=== PATIENT | female | born 1970 | race Hispanic/Latino ===

== ENCOUNTER 2017-11-27 08:29 | Day surgery (SDC) | payer MEDICAID ==
[~2017-11-27 08:29] MED LIST: TETRACAINE 0.5% OD PRN; XYLOCAINE 2%/ EPI 1:200,000 INFILTRATI ONE
[2017-11-27] MEDS ORDERED: NACL BACTERIOSTATIC INFILTRATI ONE (10:18)
--- NOTE | 2017-11-27 10:31 | Anesthesia Day of Surgery ---
Anesthesia Day of Surgery - Day of Surgery Patient Examined: Yes Patient H&P Reviewed: Yes Patient is NPO: Yes Beta Blockers: Yes
--- NOTE | 2017-11-27 10:31 | Anesthesia Consultation ---
Anesthesia Consult and Med Hx Date of service: 11/27/17 - Airway Anesthetic Teeth Evaluation: Poor ROM Head & Neck: Adequate Mental/Hyoid Distance: Adequate Mallampati Class: Class II Intubation Access Assessment: Probably Good - Pulmonary Exam CTA: Yes - Cardiac Exam Cardiac Exam: RRR - Pre-Operative Health Status ASA Pre-Surgery Classification: ASA2 Proposed Anesthetic Plan: MAC - Pulmonary Hx Smoking: Yes (1PPD SINCE 13 Y.O.) - Cardiovascular System Hx Hypertension: Yes (OVER 20 YEARS) - Central Nervous System Hx Neuromuscular Disorder: Yes (cerebellar ataxia. ) Hx Psychiatric Problems: Yes (anxiety) - Other Systems Hx Alcohol Use: Yes (SOCIALLY) Hx Substance Use: No Hx Cancer: No - Additional Comments Anesthesia Medical History Comments: Informed consent obtained
[2017-11-27] MEDS: VIGAMOX OD SCH ×3 (10:35→10:45)
[2017-11-27] MEDS: MYDRIACYL OD SCH ×3 (10:35→10:45)
[2017-11-27] MEDS: AK-Dilate OD SCH ×3 (10:35→10:45)
[2017-11-27] MEDS ORDERED: VERSED ONE (11:12)
[2017-11-27] MEDS ORDERED: SUBLIMAZE ONE (11:31)
[2017-11-27] MEDS ORDERED: TOBRADEX ONE (11:56)
[2017-11-27] MEDS ORDERED: TOBRADEX OS ONE (12:07)
[2017-11-27] MEDS ORDERED: PRED FORTE 1% OD SCH ×2 (12:15→14:00)
[2017-11-27] MEDS ORDERED: DIAMOX PO SCH (12:15)
[2017-11-27 12:28] VITALS: BP 122/88
[2017-11-27] MEDS ORDERED: DIAMOX PO ONE (13:13)
--- NOTE | 2017-11-27 13:15 | Operative Report ---
Operative Report Operative Report: PATIENT'S NAME: DATE OF : DATE OF SURGERY: 11/27/2017 PREOPERATIVE DIAGNOSIS: Cataract right eye and left lower EYE LID MASS POSTOPERATIVE DIAGNOSIS: Same OPERATIVE PROCEDURE: Phacoemulsification with intraocular lens implantation, right eye excision of left lower EYELID mass SURGEON: Liberty Huynh M.D. ICT CUSTOMER SUPPORT OFFICER SURGEON: Shayla Lens: [id number] 22.5 D ANESTHESIA: Monitored anesthesia care in combination with topical and intracameral anesthesia because of the established specific risk of reflux, arrhythmias, or anxiety attacks associated with ocular manipulation, as well as the difficulty of the associate of science in nursing to manage such potentially catastrophic events while simultaneously attempting to complete the surgical procedure and was deemed necessary for the patient's safety to have an Civil Structural Engineer present during the procedure whenever possible. An Civil Structural Engineer was utilized to regulate the intravenous sedation of the patient so the patient was cooperative yet not asleep in order for the patient to successfully maintain fixation of the eye on the operating light of the microscope. COMPLICATIONS: [No surgical complications] No blood loss. ALLERGIES: [No known drug allergies] PROGNOSIS: Excellent INDICATIONS FOR SURGERY: The patient is undergoing surgery in the hopes of eliminating or improving these visual difficulties. PROCEDURE: After arriving at the surgery center, the patient was given topical anesthetic and dilating drops, as noted in the record. The patient was then taken into the operating room and given more anesthetic drops. The eyelids , lashes, and lid margins were scrubbed with Betadine solution, and the patient was draped. The Nurse Civil Structural Engineer administered IV sedation and monitored the patient during the procedure. The eye was then fixated with a 0.12, and a stab incision was made in the peripheral clear cornea into the anterior chamber. This was made on my left side. Viscoelastic was next used to fill the anterior chamber. The eye was once again fixated with the 0.12 forceps and a keratome was used make an incision in clear cornea peripherally on my right hand side temporally. The capsule forceps were used to open the central anterior capsule and then make a continuous round capsulotomy. Hydrodissection was carried out utilizing a cannula and balanced salt solution to delineate the cortical material from the capsule and the nucleus from the cortical material. The phaco tip was introduced into the eye and used to remove the anterior cortical material in the area of the capsulotomy. Then the phaco tip was buried into the nucleus, and a chopping instrument was introduced into the eye and used to provide countertraction in the nucleus between this instrument and the phaco tip fracturing the nucleus. This procedure was repeated multiple times, providing multiple small segments of the lens, and then the phaco tip was used to remove each of these segments. An I/A tip was then used to remove the remaining cortex. The anterior chamber was refilled with viscoelastic. An one-piece, acrylic intraocular lens was then placed into an inserting cartridge. The tip of the inserting cartridge was introduced into the keratome incision and into the anterior chamber. The implant was gently advanced through the cartridge and into the eye, where it unfolded, and both haptics were placed in the capsular bag, where it centered nicely and appeared to be well fixated. After placement of the intraocular lens, the I~and~A handpiece was placed back into the eye and used to remove the viscoelastic, including viscoelastic that was behind the optic of the intraocular lens. The anterior chamber was then filled with balanced salt solution, and hydration of the wound was used to cause swelling of the wound and more appropriate watertight closure. When the wound was found to be firm, the patient was asked to comment on how bright the light was. If there was no light perception at all or if the light was substantially dimmer than during the rest of the surgery, the amount of fluid in the eye was decompressed to lower the intraocular pressure until the patient could see the bright light again. This was done to avoid any damage or decreased blood flow to the optic nerve. The left lower lead was cleaned and prepped 2% lidocaine with epinephrine was injected. 11 blade was used to open up the bypass mucous material was expressed TobraDex ointment was placed. MEDICATIONS APPLIED AT END OF SURGERY: One drop of Pred Forte and Vigamox The patient was given a shield to wear at night and was instructed not to rub or push on the eye. DISCHARGE SUMMARY: The patient was released in stable condition. The patient and those with the patient were given a written sheet of postoperative instructions and counseling on any abnormal laboratory studies. The patient is to see us tomorrow for follow-up in the office and is to call immediately for any difficulties. Zully Storey
--- NOTE | 2017-11-27 13:17 | Short Stay Summary ---
Short Stay Documentation Date of service: 11/27/17 - History H&P: obtained from office - Allergies and Medications Current Medications: Allergies Penicillins Allergy (Verified 11/26/17 13:12) LIGHT HEADED AND FANTING vancomycin Allergy (Verified 11/26/17 13:12) Hives Home Medications Medication Instructions Recorded Confirmed Last Taken Type Lisinopril [Lisinopril] 20 mg PO DAILY 11/26/17 11/26/17 11/27/17 07:00 History Propranolol [Inderal] 40 mg PO BID 11/26/17 11/26/17 11/27/17 07:00 History clonazePAM [clonazePAM] 2 mg PO BID 11/26/17 11/26/17 11/27/17 07:00 History Active Medications Acetazolamide (Diamox) 500 mg PO BID ONE Stop: 11/27/17 13:14 Prednisolone Acetate (Pred Forte 1%) 1 drops OD QID JASON - Brief post op/procedure progress note Date of procedure: 11/27/17 Pre-op diagnosis: cataract right eye and left lower eyelid need LESION Post-op diagnosis: same Procedure: Phacoemulsification with intraocular lens insertion right eye left lower eyelid lesion excision Anesthesia: MAC, local Surgeon: CHANDANA FOOTE Estimated blood loss: none Pathology: none Condition: stable - Discharge Diagnoses (1) Cataract Status: Acute Qualifiers: Cataract type: age-related Age-related cataract type: nuclear Laterality : right Qualified Code(s): H25.11 - Age-related nuclear cataract, right eye (2) Eyelid cancer Status: Resolved Qualifiers: Laterality: left Qualified Code(s): 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 FOOTE'S INSTUCTION'S GIVEN. Follow up with: MICHELE MCINTOSH MD [Primary Care Provider] - 7 Days Forms: [facility]
--- NOTE | 2017-11-27 14:27 | Post Anesthesia Evaluation ---
- Post Anesthesia Evaluation Patient Participated: Yes Airway Patent: Yes Stable Respiratory Function: Yes Temp > 96.8F: Yes Pain Manageable: Yes Adequeate Hydration: Yes Anesthesia Complications: No
== END 2017-11-27 12:44 ==
LOC: OR 08:29
DX: H26.9 Unspecified cataract (principal); H02.89 Other specified disorders of eyelid; Z79.899 Other long term (current) drug therapy; Z88.0 Allergy status to penicillin; Z88.1 Allergy status to other antibiotic agents
CPT/HCPCS: 11440; 66984; J2250; J3010; V2632